=== PATIENT | male | born 1955 | race Caucasian/White ===

== ENCOUNTER 2017-01-21 12:47 | Outpatient (CLI) | payer OTHER, BC | END 2017-01-21 12:48 | disposition critical access hospital (66) | LOC: EMS 12:47 | PROVIDERS: ATTEND Surgery | DX: S09.90XA Unspecified injury of head, initial encounter (principal); V23.4XXA Motorcycle driver injured in collision with car, pick-up truck or van in traffic accident, initial encounter; Y92.413 State road as the place of occurrence of the external cause | CPT/HCPCS: A0425; A0429 ==

== ENCOUNTER 2017-01-21 13:23 | Emergency (ER) | payer OTHER, BC ==
[2017-01-21] MEDS ORDERED: ACETAMINOPHEN 325 MG TABLET PO STA (13:58)
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
[2017-01-21] MEDS ORDERED: ACETAMINOPHEN 325 MG TABLET PO ONE (14:11)
--- NOTE | 2017-01-21 14:26 | CT Preliminary Report ---
Exam: CT Head W/O Impression: 1. Age appropriate senescent change. 2. A mild amount of white matter disease is identified, likely representing chronic microangiopathy. 3. Focal encephalomalacia, posterior and inferior left cerebellum is consistent with the sequela of r emote, embolic type infarction. 4. Intracranial atherosclerosis. 5. No acute intracranial pathology is identified. In particular, no evidence of skull fracture or int racranial hemorrhage. SITE ID: [id number]
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
[2017-01-21 15:47] VITALS: BP 138/94
== END 2017-01-21 15:45 | disposition home or self-care (01) ==
LOC: ED 13:23
DX: S09.90XA Unspecified injury of head, initial encounter (principal); V23.4XXA Motorcycle driver injured in collision with car, pick-up truck or van in traffic accident, initial encounter; Y92.488 Other paved roadways as the place of occurrence of the external cause; I10 Essential (primary) hypertension; K21.9 Gastro-esophageal reflux disease without esophagitis
CPT/HCPCS: 70450; 72125; 99284; A9270

== ENCOUNTER 2017-06-28 08:00 | Outpatient (CLI) | payer BC, OTHER ==
[2017-06-28 18:25] LABS: BASOPHILS % (AUTO) 1.4 %; EOSINOPHILS % (AUTO) 0.9 %; HGB - HEMOGLOBIN 15.6 g/dL (14.0-18.0); LYMPHOCYTES % (AUTO) 21.4 %; MEAN CORPUSCULAR HEMOGLOBIN 28.3 pg (27.0-31.0); MEAN CORPUSCULAR HGB CONC 33.3 g/dL (32.0-36.0); MEAN CORPUSCULAR VOLUME 84.8 fL (80.0-94.0); MEAN PLATELET VOLUME 9.2 fL (7.4-11.4); NEUTROPHILS % (AUTO) 69.3 %; PLT - PLATELET COUNT 187 10^3/uL (130-450); RED BLOOD COUNT 5.53 10^6/uL (4.70-6.10); RED CELL DISTRIBUTION WIDTH 17.1 % (12.0-15.0); WHITE BLOOD COUNT 11.6 x10^3/uL (4.8-10.8)
[2017-06-28 18:55] LABS: ALBUMIN 4.6 g/dL (3.2-5.5); ALBUMIN/GLOBULIN RATIO 1.5 (1.0-2.2); ALKALINE PHOSPHATASE 88 IU/L (42-121); ALT ALANINE AMINOTRANSFERASE 20 IU/L (10-60); AST ASPARTATE AMINOTRANSFERASE 15 IU/L (10-42); BILIRUBIN,TOTAL 0.5 mg/dL (0.2-1.0); BUN - BLOOD UREA NITROGEN 19 mg/dL (6-20); CALCIUM 9.5 mg/dL (8.5-10.3); CARBON DIOXIDE - CO2 26 mmol/L (21-32); CHLORIDE 101 mmol/L (101-111); CHOLESTEROL 160 mg/dL; GFR - MDRD 75 (>89); GLUCOSE 103 mg/dL (70-100); HDL CHOLESTEROL 40 mg/dL; LDL CHOLESTEROL,CALCULATED 82 mg/dL; LDL/HDL RATIO 2.1 (<3.6); SODIUM 136 mmol/L (135-145); TOTAL PROTEIN 7.7 g/dL (6.7-8.2); VLDL CHOLESTEROL 38 mg/dL
[2017-06-28 21:05] LABS: PLATELET ESTIMATE, MANUAL NORMAL (130-450,000) (NORMAL); PLATELET MORPHOLOGY RARE GIANT PLATELETS (NORMAL); RBC MORPHOLOGY (MULTIPLE) NORMAL APPEARANCE (NORMAL)
[2017-06-28 21:07] LABS: ABNORMAL LYMPHS % (MANUAL) 0 %
[2017-06-28 21:12] LABS: BAND NEUTROPHILS % (MANUAL) 1 %; DIFFERENTIAL COMMENT MANUAL DIFFERENTIAL; EOSINOPHILS # (MANUAL) 0.1 10^3/uL (0-0.7); LYMPHOCYTES # (MANUAL) 2.8 10^3/uL (1.5-3.5); LYMPHOCYTES % (MANUAL) 19 %; METAMYELOCYTES % (MANUAL) 1 %; MONOCYTES # (MANUAL) 0.9 10^3/uL (0.0-1.0); NEUTROPHILS # (MANUAL) 7.4 10^3/uL (1.5-6.6); NEUTROPHILS % (MANUAL) 63 %; PROMYELOCYTES % (MANUAL) 2 %
== END 2017-06-28 08:01 | disposition home or self-care (01) ==
LOC: LAB.S 08:00
PROVIDERS: ATTEND Nurse Practitioner Family
DX: I10 Essential (primary) hypertension (principal); Z13.220 Encounter for screening for lipoid disorders
CPT/HCPCS: 36415; 80053; 80061; 83721; 84443; 85025